=== PATIENT | male | born 1980 | race Caucasian/White ===

== ENCOUNTER 2019-10-05 15:19 | Emergency (ER) | payer BC ==
[~2019-10-05] VITALS: Ht 190.5 cm; Wt 87.1 kg
[2019-10-05] MEDS ORDERED: FAMOTIDINE 20 MG/2 ML ONE (15:47)
[2019-10-05] MEDS ORDERED: ONDANSETRON 2MG/ML, 2ML ONE ×2 (15:47)
[2019-10-05] MEDS ORDERED: SODIUM CHLORIDE 0.9% 1,000ML IVBOLUS ONE ×2 (16:00→18:30)
[2019-10-05] MEDS ORDERED: SODIUM CHLORIDE FLUSH 10ML SYR IVF ONE (16:00)
[2019-10-05] MEDS ORDERED: ONDANSETRON 2MG/ML, 2ML IVPush ONE (16:00)
[2019-10-05] MEDS ORDERED: FAMOTIDINE 20 MG/2 ML IVPush ONE (16:00)
[2019-10-05] MEDS ORDERED: MORPHINE SULFATE 4 MG/ML, 1ML ONE (16:13)
--- NOTE | 2019-10-05 16:18 | NUR ---
PT RESTING IN GOWN IN [facility] WITH CALL LIGHT WITHIN REACH. PT SPOUSE AT BS WITH PT. PT EDUCATED ON ER PROCESS AND POC AND VERBALIZES UNDERSTANDING. PIV ACCESS ESTABLISHED AT THIS TIME AND LABS DRAWN AND SENT TO LAB. PT MEDICATED PER MAR. PT DENIES ANY OTHER NEEDS AT THIS TIME. IV FLUIDS RUNNING.
[2019-10-05 16:29] LABS: BASOPHILS # (AUTO) 0.03 x10^3/uL (0-0.1); BASOPHILS % (AUTO) 0 % (0-1); EOSINOPHILS # (AUTO) 0.01 x10^3/uL (0-0.4); EOSINOPHILS % (AUTO) 0 % (1-7); LYMPHOCYTES # (AUTO) 0.96 x10^3/uL (1-3.4); LYMPHOCYTES % (AUTO) 10 % (22-44); MD NO; MEAN CORPUSCULAR HEMOGLOBIN 31.4 pg (27.5-34.5); MEAN CORPUSCULAR HGB CONC 33.3 g/dL (33.2-36.2); MEAN CORPUSCULAR VOLUME 94.2 fL (81-97); MEAN PLATELET VOLUME 7.7 fL (7.4-10.4); MONOCYTES # (AUTO) 0.59 x10^3/uL (0.2-0.8); MONOCYTES % (AUTO) 6 % (2-9); NEUTROPHILS # (AUTO) 8.55 x10^3/uL (1.8-6.8); NEUTROPHILS % (AUTO) 84 % (42-75); PLATELET COUNT 306 x10^3/uL (130-400); RED BLOOD COUNT 4.79 x10^6/uL (4.38-5.82); RED CELL DISTRIBUTION WIDTH 12.9 % (9.4-14.8)
[2019-10-05] MEDS ORDERED: MORPHINE SULFATE 4 MG/ML, 1ML IVPush PRN (16:30)
[2019-10-05 16:37] LABS: ALANINE AMINOTRANSFERASE 19 U/L (12-78); ALBUMIN 3.9 g/dL (3.4-5.0); ANION GAP 11 mmol/L (5-15); CALCIUM 8.8 mg/dL (8.5-10.1); CHLORIDE 110 mmol/L (98-107); CREATININE 0.91 mg/dL (0.7-1.3)
[2019-10-05 16:40] LABS: ALKALINE PHOSPHATASE 52 U/L (45-117); BILIRUBIN,TOTAL 0.7 mg/dL (0.2-1.0); TOTAL PROTEIN 7.8 g/dL (6.4-8.2)
[2019-10-05 17:23] LABS: MICROSCOPIC NOT IND
[2019-10-05] MEDS ORDERED: OMNIPAQUE 350 MG/ML, 100ML BOTTLE ONE (17:45)
[2019-10-05] MEDS ORDERED: PROMETHAZINE 25 MG/ML, 1ML ONE (18:25)
[2019-10-05] MEDS ORDERED: PROMETHAZINE 25 MG/ML, 1ML IM ONE (18:30)
--- NOTE | 2019-10-05 19:05 | NUR ---
REPORT RECEIVED FROM IBIS PEREZ.
--- NOTE | 2019-10-05 19:30 | NUR ---
pt resting in [facility]. pt's aox4. resps even and unlabored. bp/spo2 monitors in place. call light within reach.
[2019-10-05 20:10] VITALS: BP 127/67
--- NOTE | 2019-10-05 20:11 | NUR ---
pt resting in [facility]. pt stated"i feel much better. my pain level is 3/10 now" resps even and unlabored. bp/spo2 monitors in place. call light within reach.
--- NOTE | 2019-10-05 20:18 | NUR ---
edmd at bedside to explain all results at this time.
--- NOTE | 2019-10-05 20:50 | NUR ---
Patient given discharge instructions and they have confirmed that they understand the instructions. Patient ambulatory with steady gait.
== END 2019-10-05 20:51 | disposition home or self-care (01) ==
LOC: ED 16:54
DX: A09 Infectious gastroenteritis and colitis, unspecified (principal); R10.84 Generalized abdominal pain; R11.2 Nausea with vomiting, unspecified
CPT/HCPCS: 36415; 74177; 80053; 81003; 83690; 85025; 96361; 96372; 96374; 96375; 99285; J2270; J2405; J2550; J3490; J7030; Q9967